=== PATIENT | female | born 1950 | race Caucasian/White ===

== ENCOUNTER → 2018-03-17 | Outpatient (CLI) | payer MEDICARE | END | disposition home or self-care (01) | LOC: CFH 14:07 | PROVIDERS: ATTEND Registered Nurse | DX: I25.10 Atherosclerotic heart disease of native coronary artery without angina pectoris (principal); K46.9 Unspecified abdominal hernia without obstruction or gangrene; R91.1 Solitary pulmonary nodule | CPT/HCPCS: 71250 ==

== ENCOUNTER 2019-12-13 15:52 | Emergency (ER) | payer MEDICARE ==
[~2019-12-13] VITALS: Ht 167.6 cm; Wt 63.0 kg
--- NOTE | 2019-12-13 16:34 | NUR ---
FIRST CONTACT WITH PT. PT STATED " SENT ME HERE. I FEEL DIZZY AND HAVE A HEADACHE, BUT THAT'S BEEN SINCE SEPTEMBER. MY RIGHT EYE HAS BEEN SORE FOR 4 DAYS. WHEN I WATCH TV IT STRAINS IT, SO MAYBE THAT'S IT." PER SPOUSE "HER BP HAS BEEN REALLY HIGH" PT STATES SHE DOESN'T TAKE HER BP MEDS CONSISTENTLY PT ALSO C/O R LEG PAIN WELL. PT'S AOX4. RESPS EVEN AND UNLABORED. PT DENIES SOB/CP. ALL MONITORS IN PLACE. CALL LIGHT WITHIN REACH. FAMILY AT BEDSIDE.
[2019-12-13 17:26] LABS: BASOPHILS # (AUTO) 0.08 x10^3/uL (0-0.1); BASOPHILS % (AUTO) 1 % (0-1); EOSINOPHILS # (AUTO) 0.08 x10^3/uL (0-0.4); EOSINOPHILS % (AUTO) 1 % (1-7); LYMPHOCYTES % (AUTO) 11 % (22-44); MD NO; MEAN CORPUSCULAR HEMOGLOBIN 32.8 pg (27.0-34.8); MEAN CORPUSCULAR HGB CONC 33.9 g/dL (32.4-35.8); MEAN CORPUSCULAR VOLUME 96.7 fL (80-100); MEAN PLATELET VOLUME 7.4 fL (7.4-10.4); MONOCYTES # (AUTO) 0.78 x10^3/uL (0.2-0.8); MONOCYTES % (AUTO) 11 % (2-9); NEUTROPHILS # (AUTO) 5.49 x10^3/uL (1.8-6.8); NEUTROPHILS % (AUTO) 76 % (42-75); PLATELET COUNT 158 x10^3/uL (130-400); RED BLOOD COUNT 4.49 x10^6/uL (3.82-5.3)
--- NOTE | 2019-12-13 17:27 | NUR ---
PT RESTING IN [facility]. PT'S AOX4. RESPS EVEN AND UNLABORED. ALL MONITORS IN PLACE. CALL LIGHT WITHIN REACH. JERMAINE.
[2019-12-13 17:38] LABS: ANION GAP 6 mmol/L (5-15); CALCIUM 9.7 mg/dL (8.5-10.1); CHLORIDE 92 mmol/L (98-107)
[2019-12-13 17:41] LABS: ALANINE AMINOTRANSFERASE 46 U/L (12-78); ALKALINE PHOSPHATASE 135 U/L (45-117); BILIRUBIN,TOTAL 0.6 mg/dL (0.2-1.0); TOTAL PROTEIN 7.7 g/dL (6.4-8.2)
[2019-12-13 18:25] VITALS: BP 171/77
--- NOTE | 2019-12-13 18:25 | NUR ---
EDMD AT BEDSIDE TO EXPLAIN ALL RESULTS AT THIS TIME. PT VERBALY UNDERSTANDING.
--- NOTE | 2019-12-13 18:54 | NUR ---
REPORT GIVEN TO CHENTE JUNG.
== END 2019-12-13 19:20 | disposition home or self-care (01) ==
LOC: ED 19:00
DX: R20.2 Paresthesia of skin (principal); I10 Essential (primary) hypertension; R51 Headache; R07.9 Chest pain, unspecified; R53.83 Other fatigue; R94.31 Abnormal electrocardiogram [ECG] [EKG]; J44.9 Chronic obstructive pulmonary disease, unspecified
CPT/HCPCS: 36415; 70450; 71045; 72131; 80053; 85025; 93005; 99285

== ENCOUNTER → 2020-03-25 | Outpatient (CLI) | payer MEDICARE | END | disposition home or self-care (01) | LOC: CVU 14:52 | PROVIDERS: ATTEND Orthopaedic Surgery | DX: I70.203 Unspecified atherosclerosis of native arteries of extremities, bilateral legs (principal); G62.9 Polyneuropathy, unspecified | CPT/HCPCS: 93922; 93925 ==

== ENCOUNTER 2020-09-19 10:29 | Outpatient (CLI) | payer MEDICARE | END 2020-09-19 23:59 | disposition home or self-care (01) | LOC: CVU 10:29 | PROVIDERS: ATTEND Internal Medicine Cardiovascular Disease | DX: I34.8 Other nonrheumatic mitral valve disorders (principal); R01.1 Cardiac murmur, unspecified; R94.31 Abnormal electrocardiogram [ECG] [EKG] | CPT/HCPCS: 93306 ==

== ENCOUNTER 2020-09-26 12:39 | Outpatient (CLI) | payer MEDICARE ==
[~2020-09-26 12:39] MED LIST: REGADENOSON 0.4 MG/5 ML SYRINGE ONE
== END 2020-09-26 23:59 | disposition home or self-care (01) ==
LOC: CFH 12:39
PROVIDERS: ATTEND Internal Medicine Cardiovascular Disease
DX: R01.1 Cardiac murmur, unspecified (principal); R94.31 Abnormal electrocardiogram [ECG] [EKG]
CPT/HCPCS: 78452; 93017; A9502; J2785

== ENCOUNTER → 2020-11-03 | Outpatient (CLI) | payer MEDICARE | END | disposition home or self-care (01) | LOC: CVU 14:39 | PROVIDERS: ATTEND Physician Assistant Medical | DX: I65.23 Occlusion and stenosis of bilateral carotid arteries (principal); R09.89 Other specified symptoms and signs involving the circulatory and respiratory systems | CPT/HCPCS: 93880 ==